=== PATIENT | male | born 1995 | race Caucasian/White ===

== ENCOUNTER 2022-01-15 04:09 | Emergency (ER) | payer OTHER ==
[~2022-01-15] VITALS: Ht 177.8 cm; Wt 77.1 kg
[2022-01-15 04:45] VITALS: BP 129/77
== END 2022-01-15 04:50 | disposition left against medical advice (07) ==
LOC: ER 04:17
DX: Z53.21 Procedure and treatment not carried out due to patient leaving prior to being seen by health care provider (principal)

== ENCOUNTER 2022-01-15 09:57 | Emergency (ER) | payer OTHER ==
[~2022-01-15] VITALS: Ht 188 cm; Wt 85.3 kg
--- NOTE | 2022-01-15 09:57 | NUR ---
PT BIBRA 89 C/O SI NO SPECIFIC PLAN. HEARING VOICES. REQUESTING VOLUNTARY PSYCH ADMISSION. PT IS AAOX4, NOT IN RESPIRATORY DISTRESS, V/S STABLE, KEPT RESTED AND COMFORTABLE. SITTER AT BEDSIDE. WILL CONTINUE TO MONITOR.
--- NOTE | 2022-01-15 10:06 | NUR ---
CALLED SECURITY FOR WANDING.
--- NOTE | 2022-01-15 10:38 | NUR ---
SS Note: Pt. Is a 26-year-old male who demonstrates adequate insight to the reason for hospitalization. Per pt., he presents himself to the Emergency room for hearing voices. Pt. was oriented x4, alert, and cooperative. During interview, pt. was capable of following directions and appeared unkempt. Pt.'s speech was at a normal rate and pt.'s mood was elevated. Pt. reported no hx of mental health, substance abuse, suicidal ideation, or homicidal ideation. Pt. denies visual hallucinations, paranoia, or delusions. Pt. reports having auditory hallucinations, the voices are giving him advice "to do this and that" per pt. SW explored pt.'s living situation. Per pt., he was living at a [facility] [does not remember the name] for a month. Prior to the custodial, pt. had an apartment in [place] [[address] [place], [place]]. Pt. is requesting voluntary psych admission to [facility]. Plan: SW provided available resources and pt. rejected. Per pt., he is requesting voluntary psych admission to [facility]. Clinicals will be faxed once pt. is medically cleared.
--- NOTE | 2022-01-15 10:38 | NUR ---
URINE SPECIMEN COLLECTED AND SENT TO LAB.
[2022-01-15 10:42] LABS: ALANINE AMINOTRANSFERASE 43 U/L (12-78); ALBUMIN 4.5 g/dL (3.4-5.0); ALCOHOL, BLOOD < 3 mg/dL (0-0); ALKALINE PHOSPHATASE 73 U/L (46-116); ASPARTATE AMINOTRANSFERASE 34 U/L (15-37); BILIRUBIN,DIRECT 0.2 mg/dL (0.0-0.2); CALCIUM, SERUM 8.6 mg/dL (8.5-10.1); CARBON DIOXIDE 25 mmol/L (21-32); CHLORIDE 102 mmol/L (98-107); CREATININE 0.8 mg/dL (0.6-1.3); GLUCOSE 98 mg/dL (74-106); POTASSIUM 3.7 mmol/L (3.5-5.1); SODIUM SERUM 138 mmol/L (136-145); TOTAL PROTEIN, SERUM 7.5 g/dL (6.4-8.2); UREA NITROGEN, BLOOD 13 mg/dL (7-18)
[2022-01-15 10:44] LABS: BASOPHILS % (AUTO) 0.4 % (0.0-2.0); EOSINOPHILS % (AUTO) 0.6 % (0.0-6.0); HEMATOCRIT 45 % (39-51); HEMOGLOBIN 15.3 g/dL (13.5-17.5); LYMPHOCYTES % (AUTO) 10.7 % (20.0-44.0); MEAN CORPUSCULAR HGB CONC 34 g/dl (31.0-36.0); MEAN CORPUSCULAR VOLUME 88 fL (80-96); MONOCYTES # (AUTO) 0.5 K/uL (0.1-1.30); NEUTROPHILS # (AUTO) 7.7 K/uL (1.8-8.9); NEUTROPHILS % (AUTO) 83.3 % (43.0-81.0); PLATELET COUNT (AUTO) 230 K/uL (150-450); RED BLOOD CELL COUNT(AUTO) 5.08 MIL/uL (4.5-6.0); WHITE BLOOD COUNT (AUTO) 9.3 K/uL (4.3-11.0)
[2022-01-15 10:58] LABS: ACETAMINOPHEN 0 ug/ml (10-30)
[2022-01-15 11:05] LABS: BILIRUBIN,URINE NEGATIVE (NEGATIVE); COLOR,URINE YELLOW (YELLOW); LEUKOCYTE ESTERASE ,URINE NEGATIVE (NEGATIVE); NITRITE, URINE NEGATIVE (NEGATIVE); PROTEIN,URINE NEGATIVE (NEGATIVE); UGLUCOSE NEGATIVE (NEGATIVE); UROBILINOGEN,URINE 0.2 EU/dL (0.2)
--- NOTE | 2022-01-15 12:43 | NUR ---
Followed-up with [facility], awaiting for feedback.
--- NOTE | 2022-01-15 13:10 | NUR ---
PT STATED HE IS NOT SUICIDAL ANYMORE WANT TO BE DISCHARGED AND WANT TO TALK TO HIS DOCTOR.
--- NOTE | 2022-01-15 13:27 | NUR ---
Patient discharged to home in stable condition. Written and verbal after care instructions given. Patient verbalizes understanding of instruction.
[2022-01-15 13:28] VITALS: BP 127/61
== END 2022-01-15 13:28 | disposition home or self-care (01) ==
LOC: ER 09:58
DX: F29 Unspecified psychosis not due to a substance or known physiological condition (principal); F20.9 Schizophrenia, unspecified; Z20.822 Contact with and (suspected) exposure to COVID-19
CPT/HCPCS: 36415; 80048; 80076; 80143; 80307; 80320; 81003; 85025; 87426; 99283; C9803; G0480